=== PATIENT | female | born 1975 | race Caucasian/White ===

== ENCOUNTER 2020-01-02 13:13 | Inpatient (IN) | payer BC ==
[~2020-01-02] VITALS: Ht 157.5 cm; Wt 81.8 kg
[2020-01-02 15:07] LABS: BASOPHILS # (AUTO) 0.1 X10'3 (0-0.2); BASOPHILS % (AUTO) 0.6 % (0-1); EOSINOPHILS # (AUTO) 0.3 X10'3 (0-0.9); EOSINOPHILS % (AUTO) 3.1 % (0-6); HEMOGLOBIN 12.4 g/dl (12.0-16.0); LYMPHOCYTES # (AUTO) 1.7 X10'3 (1.1-4.8); LYMPHOCYTES % (AUTO) 20.2 % (21-51); MEAN CORPUSCULAR HEMOGLOBIN 27.5 PG (27.0-31.0); MEAN CORPUSCULAR HGB CONC 32.5 g/dL (33.0-36.5); MEAN CORPUSCULAR VOLUME 84.6 FL (78-98); MEAN PLATELET VOLUME 8.2 FL (7.4-10.4); MONOCYTES # (AUTO) 0.7 X10'3 (0-0.9); MONOCYTES % (AUTO) 8.6 % (2-12); NEUTROPHILS # (AUTO) 5.5 X10'3 (1.8-7.7); NEUTROPHILS % (AUTO) 67.5 % (42-75); PLATELET COUNT 434 X10'3 (140-440); RED CELL DISTRIBUTION WIDTH 15.5 % (11.5-14.5); WHITE BLOOD COUNT 8.2 X10'3 (4.5-11.0)
[2020-01-02 15:10] LABS: URINE HCG NEGATIVE (NEG)
[2020-01-02 15:12] LABS: CLARITY,URINE SLIGHTLY CLOUDY (Clear); COLOR,URINE AMBER (Yellow)
[2020-01-02 15:28] LABS: UA COLLECTION TYPE CLN CATCH MIDSTREAM
[2020-01-02 15:31] LABS: MUCUS STRANDS MODERATE /LPF (Neg)
[2020-01-02 15:32] LABS: BACTERIA,URINE FEW /HPF (Neg); SQUAMOUS EPITHELIAL CELL,UR MODERATE /LPF (FEW)
[2020-01-02 15:33] LABS: RBC,URINE 0-2 /HPF (0-2); WBC,URINE 0-4 /HPF (0-4)
[2020-01-02 15:34] LABS: TRANSITIONAL EPI CELLS,URINE FEW /HPF
[2020-01-02 15:38] LABS: CAL OXALATE CRYSTALS 1+ /HPF (NEGATIVE)
[2020-01-02 15:40] LABS: ALANINE AMINOTRANSFERASE 706 U/L (12-78); ALBUMIN 3.7 G/DL (3.4-5.0); ALKALINE PHOSPHATASE 502 IU/L (46-116); AMYLASE 36 U/L (25-115); ANION GAP 11 (8-16); ASPARTATE AMINO TRANSFERASE 339 U/L (10-37); BILIRUBIN,TOTAL 4.6 MG/DL (0.1-1.0); BLOOD UREA NITROGEN 9 MG/DL (7-18); BUN/CREATININE RATIO 12.7 (6.6-38.0); CALCIUM 9.3 MG/DL (8.5-10.1); CHLORIDE 101 MMOL/L (99-107); CREATININE 0.71 MG/DL (0.40-0.90); GLUCOSE 92 MG/DL (70-104); LIPASE 136 U/L (73-393); SODIUM 138 MMOL/L (135-145); TOTAL CARBON DIOXIDE 26.2 MMOL/L (24-32); eGFR 90 ML/MIN
[2020-01-02 15:41] LABS: ALBUMIN/GLOBULIN RATIO 0.9 (1.1-1.5); POTASSIUM 3.8 MMOL/L (3.5-5.1)
[2020-01-02] MEDS ORDERED: piperacillin/tazo 4.5gm/100ml 100 ML IV ONE (16:50)
[2020-01-02] MEDS ORDERED: OMEP40CA13 PO (17:08)
[2020-01-02] MEDS ORDERED: normal saline 1000ML IV soln IVB ONE (17:15)
[2020-01-02] MEDS ORDERED: HYDROcodone/acetaminophen 10/325mg tab PO PRN (17:25)
[2020-01-02] MEDS ORDERED: diphenhydrAMINE 25mg capsule PO PRN (17:25)
[2020-01-02] MEDS ORDERED: HYDROmorphone inj. 0.5 MG/0.5 ML DISP.SYRIN IV PRN (17:25)
[2020-01-02] MEDS ORDERED: mag hydrox/Alum hydrox/simeth 30ml oral suspension PO PRN (17:25)
[2020-01-02] MEDS ORDERED: acetaminophen 325mg tablet PO PRN ×2 (17:25)
[2020-01-02] MEDS ORDERED: magnesium hydroxide 30ml (MOM) UD suspension PO PRN (17:25)
[2020-01-02] MEDS ORDERED: ondansetron/PF 4mg/2ml inj IV PRN (17:25)
[2020-01-02 19:25] VITALS: BP 127/78
[2020-01-02] MEDS: normal saline 1000ml 1,000 ML IV SCH (19:49)
[2020-01-03] VITALS (20 sets, daily range): BP systolic 111–154; BP diastolic 68–98
[2020-01-03] MEDS: piperacillin/tazo 4.5gm/100ml 100 ML IV SCH ×4 (00:09→23:53)
[2020-01-03 04:54] LABS: BASOPHILS # (AUTO) 0.1 X10'3 (0-0.2); BASOPHILS % (AUTO) 2.1 % (0-1); EOSINOPHILS # (AUTO) 0.3 X10'3 (0-0.9); HEMATOCRIT 33.4 % (35.0-45.0); HEMOGLOBIN 10.9 g/dl (12.0-16.0); MEAN CORPUSCULAR HEMOGLOBIN 27.8 PG (27.0-31.0); MEAN PLATELET VOLUME 8.1 FL (7.4-10.4); NEUTROPHILS # (AUTO) 3.2 X10'3 (1.8-7.7)
[2020-01-03 04:56] LABS: EOSINOPHILS % (AUTO) 5.2 % (0-6); LYMPHOCYTES # (AUTO) 1.7 X10'3 (1.1-4.8); LYMPHOCYTES % (AUTO) 28.5 % (21-51); MEAN CORPUSCULAR HGB CONC 32.6 g/dL (33.0-36.5); MEAN CORPUSCULAR VOLUME 85.3 FL (78-98); MONOCYTES # (AUTO) 0.6 X10'3 (0-0.9); MONOCYTES % (AUTO) 10.5 % (2-12); NEUTROPHILS % (AUTO) 53.7 % (42-75); PLATELET COUNT 361 X10'3 (140-440); RED BLOOD COUNT 3.92 X10'6 (4.20-5.60); RED CELL DISTRIBUTION WIDTH 15.6 % (11.5-14.5)
[2020-01-03] MEDS: normal saline 1000ml 1,000 ML IV SCH ×3 (05:22→20:54)
[2020-01-03 05:24] LABS: ALANINE AMINOTRANSFERASE 561 U/L (12-78); ALKALINE PHOSPHATASE 419 IU/L (46-116); ANION GAP 10 (8-16); ASPARTATE AMINO TRANSFERASE 255 U/L (10-37); BILIRUBIN,TOTAL 4.4 MG/DL (0.1-1.0); BLOOD UREA NITROGEN 7 MG/DL (7-18); BUN/CREATININE RATIO 9.1 (6.6-38.0); CALCIUM 8.4 MG/DL (8.5-10.1); CHLORIDE 106 MMOL/L (99-107); CREATININE 0.77 MG/DL (0.40-0.90); GLUCOSE 84 MG/DL (70-104); POTASSIUM 3.6 MMOL/L (3.5-5.1); SODIUM 140 MMOL/L (135-145); TOTAL CARBON DIOXIDE 24.3 MMOL/L (24-32); eGFR 82 ML/MIN
[2020-01-03 05:25] LABS: ALBUMIN/GLOBULIN RATIO 0.9 (1.1-1.5); TOTAL PROTEIN 6.5 G/DL (6.4-8.2)
[2020-01-03 05:42] LABS: PLATELET ESTIMATE NORMAL; TOTAL CELLS COUNTED 100
--- NOTE | 2020-01-03 06:28 | NUR ---
Problems reprioritized. Patient report given, questions answered & plan of care reviewed with Zofia JUSTIN. Addendum: 01/03/20 at 0628 by Faith Gallo RN Amended: Links added.
--- NOTE | 2020-01-03 06:30 | NUR ---
Patient in room [facility]. I have received report from NHAN Cuevas and had the opportunity to ask questions and assume patient care.
--- NOTE | 2020-01-03 06:38 | NUR ---
Student documentation: I have reviewed and agree with all interventions, assessments performed and documented by Leanna Student nurse. Addendum: 01/03/20 at 0639 by Faith Gallo RN Amended: Links added.
[2020-01-03] MEDS ORDERED: fentaNYL/PF 50MCG/1 ML 2ML syringe ONE (13:01)
[2020-01-03] MEDS ORDERED: MIDAZolam 5mg/5ml vial ONE (13:01)
[2020-01-03] MEDS ORDERED: diphenhydrAMINE 50 mg/ml inj ONE (13:01)
[2020-01-03] MEDS ORDERED: iohexol 300 MG/1 ML 50ml polymer ONE (13:02)
[2020-01-03] MEDS ORDERED: LIDOcaine Viscous 15ml cup ONE (13:02)
[2020-01-03] MEDS ORDERED: glucagon, human recombinant 1mg kit ONE (13:02)
--- NOTE | 2020-01-03 13:40 | NUR ---
Patient in room [facility]. I have received report from NHAN Armijo and had the opportunity to ask questions and assume patient care.
--- NOTE | 2020-01-03 13:45 | NUR ---
patient picked up for ERCP
--- NOTE | 2020-01-03 14:00 | NUR ---
Problems reprioritized. Patient report given, questions answered & plan of care reviewed with NHAN Willis.
--- NOTE | 2020-01-03 16:10 | NUR ---
patient arrived to floor. VSS. c/o 07/03 pain.
[2020-01-03] MEDS: HYDROcodone/acetaminophen 5mg/325mg tablet PO PRN ×2 (16:20→20:56)
--- NOTE | 2020-01-03 18:32 | NUR ---
Student Medication Administration: For this medication-pass time frame, all medication were reviewed, dispensed, administered and documented per hospital policy by SN Mariah.
--- NOTE | 2020-01-03 18:33 | NUR ---
Problems reprioritized. Patient report given, questions answered & plan of care reviewed with NHAN LAU.
[2020-01-04] VITALS (20 sets, daily range): BP systolic 98–130; BP diastolic 52–77
--- NOTE | 2020-01-04 00:25 | NUR ---
Student documentation: I have reviewed and agree with all interventions, assessments performed and documented by Brigette Student nurse. Addendum: 01/04/20 at 0026 by Faith Gallo RN Amended: Links added.
[2020-01-04 05:19] LABS: BASOPHILS # (AUTO) 0.1 X10'3 (0-0.2); EOSINOPHILS # (AUTO) 0.3 X10'3 (0-0.9); HEMOGLOBIN 10.3 g/dl (12.0-16.0); MONOCYTES # (AUTO) 0.6 X10'3 (0-0.9); WHITE BLOOD COUNT 5.1 X10'3 (4.5-11.0)
[2020-01-04 05:24] LABS: BASOPHILS % (AUTO) 2.6 % (0-1); EOSINOPHILS % (AUTO) 5.4 % (0-6); HEMATOCRIT 30.9 % (35.0-45.0); LYMPHOCYTES # (AUTO) 1.6 X10'3 (1.1-4.8); LYMPHOCYTES % (AUTO) 32.1 % (21-51); MEAN CORPUSCULAR HEMOGLOBIN 28.6 PG (27.0-31.0); MEAN CORPUSCULAR HGB CONC 33.3 g/dL (33.0-36.5); MEAN CORPUSCULAR VOLUME 85.7 FL (78-98); MEAN PLATELET VOLUME 8.1 FL (7.4-10.4); MONOCYTES % (AUTO) 11.4 % (2-12); NEUTROPHILS # (AUTO) 2.5 X10'3 (1.8-7.7); NEUTROPHILS % (AUTO) 48.5 % (42-75); PLATELET COUNT 333 X10'3 (140-440); RED CELL DISTRIBUTION WIDTH 15.4 % (11.5-14.5)
[2020-01-04 05:36] LABS: ALANINE AMINOTRANSFERASE 483 U/L (12-78); ALBUMIN 2.9 G/DL (3.4-5.0); ALBUMIN/GLOBULIN RATIO 0.9 (1.1-1.5); ALKALINE PHOSPHATASE 399 IU/L (46-116); ANION GAP 9 (8-16); ASPARTATE AMINO TRANSFERASE 183 U/L (10-37); BILIRUBIN,TOTAL 2.6 MG/DL (0.1-1.0); BLOOD UREA NITROGEN 7 MG/DL (7-18); BUN/CREATININE RATIO 8.6 (6.6-38.0); CALCIUM 8.4 MG/DL (8.5-10.1); CHLORIDE 105 MMOL/L (99-107); CREATININE 0.81 MG/DL (0.40-0.90); GLUCOSE 89 MG/DL (70-104); POTASSIUM 3.8 MMOL/L (3.5-5.1); SODIUM 140 MMOL/L (135-145); TOTAL CARBON DIOXIDE 26.5 MMOL/L (24-32); TOTAL PROTEIN 6.3 G/DL (6.4-8.2); eGFR 78 ML/MIN
[2020-01-04] MEDS: normal saline 1000ml 1,000 ML IV SCH ×2 (05:46→12:44)
[2020-01-04] MEDS ORDERED: INDOCYANINE GREEN 25 MG/10 ML VIAL IV ONE (06:00)
--- NOTE | 2020-01-04 06:00 | NUR ---
Patient in room [facility]. I have received report from NHNA Cuevas and had the opportunity to ask questions and assume patient care.
--- NOTE | 2020-01-04 06:11 | NUR ---
Problems reprioritized. Patient report given, questions answered & plan of care reviewed with Savannah JUSTIN, and reported to him that 06 IC green IVP was given for surgery. Addendum: 01/04/20 at 0613 by Faith Gallo RN Amended: Links added.
[2020-01-04] MEDS ORDERED: LIDOcaine 1% 30ml preserv. free vial ONE (06:47)
[2020-01-04] MEDS ORDERED: BUPIVAcaine/PF 2.5 mg/ml (0.25%) 30ml vial ONE (06:47)
[2020-01-04] MEDS: piperacillin/tazo 4.5gm/100ml 100 ML IV SCH ×2 (07:06→15:27)
[2020-01-04] MEDS ORDERED: HYDROmorphone inj. 0.5 MG/0.5 ML DISP.SYRIN IV PRN ×2 (08:25)
[2020-01-04] MEDS ORDERED: ondansetron/PF 4mg/2ml inj IV PRN ×2 (08:25→10:25)
[2020-01-04] MEDS ORDERED: ringers solution, lacted 1,000 ML IV SCH (08:25)
[2020-01-04] MEDS ORDERED: meperidine/PF 25mg/ml syringe IV PRN ×2 (08:25)
--- NOTE | 2020-01-04 08:25 | NUR ---
Attempted to contact OR or Recovery x3.
[2020-01-04] MEDS ORDERED: fentaNYL/PF 50MCG/1 ML 2ML syringe ONE ×2 (08:31→09:23)
[2020-01-04] MEDS ORDERED: rocuronium 10mg/ml inj IV ONE (08:31)
[2020-01-04] MEDS ORDERED: midazolam 2 mg/2 ml injection ONE (08:31)
[2020-01-04] MEDS ORDERED: propofol inj 20 ML IV ONE (08:32)
[2020-01-04] MEDS ORDERED: dexamethasone sod phosphate 4mg/ml inj. ONE (09:58)
[2020-01-04] MEDS ORDERED: ondansetron/PF 4mg/2ml inj ONE (09:58)
[2020-01-04] MEDS ORDERED: glycopyrrolate 0.2mg/ml inj ONE (10:07)
[2020-01-04] MEDS ORDERED: neostigmine methylsulfate 1 MG/ML 10ml vial ONE (10:07)
[2020-01-04] MEDS ORDERED: HYDROcodone/acetaminophen 10/325mg tab PO PRN (10:25)
[2020-01-04] MEDS ORDERED: HYDROcodone/acetaminophen 5mg/325mg tablet PO PRN (10:25)
--- NOTE | 2020-01-04 10:30 | NUR ---
Received from OR via BED, accompanied by Anesthesiologist DR ALLRED and report given by Anesthesiolgist. PATIENT A&OX4, PAINFUL WILL MEDICATE PER ORDERS, V/S WNL, NEUROVASCULAR CHECKS INTACT, 20G PIV UE, SCD ON,
[2020-01-04] MEDS ORDERED: ketorolac trometh. 30mg/ml inj. IM ONE (11:10)
[2020-01-04] MEDS ORDERED: acetaminophen 1,000mg/100ml IV 100 ML IV ONE (11:15)
--- NOTE | 2020-01-04 11:30 | NUR ---
PATIENT TAKEN TO WITH ALL BELONGINGS AND HOOKED UP TO MONITORS IN ROOM AND REPORT GIVEN TO RN WHO HAS TAKEN OVER PATIENT CARE. PAIN GETTING BETTER POST IV TYL AND TORADOL
[2020-01-04] MEDS: HYDROmorphone/PF 0.2 MG/ML SYRINGE IV PRN ×2 (12:44→16:45)
[2020-01-04] MEDS: acetaminophen 1,000mg/100ml IV 100 ML IV SCH ×2 (13:24→21:05)
--- NOTE | 2020-01-04 18:16 | NUR ---
patient triplicate provided to . MD was contacted regarding a discharge routine, responded will input and now awaiting orders.
--- NOTE | 2020-01-04 18:42 | NUR ---
Problems reprioritized. Patient report given, questions answered & plan of care reviewed with NHAN Gomez.
[2020-01-04] MEDS ORDERED: lactobacillus rhamnosus 10,000 MMU CELLS/CAPSULE PO SCH (20:00)
[2020-01-04] MEDS ORDERED: HYDR-4353 PO (21:05)
== END 2020-01-04 22:00 | disposition home or self-care (01) | DRG 419 ==
LOC: ER 13:15 → ED HOLD 17:21 → EDBEDREQ 18:36 → SUR 3N 19:26
PROVIDERS: ADMIT Internal Medicine; ATTEND Internal Medicine
PROC: 0FJB8ZZ Inspection of Hepatobiliary Duct, Via Natural or Artificial Opening Endoscopic (ICD-10-PCS; 2020-01-03)
PROC: 8E0W4CZ Robotic Assisted Procedure of Trunk Region, Percutaneous Endoscopic Approach (ICD-10-PCS; 2020-01-04)
PROC: BF121ZZ Fluoroscopy of Gallbladder using Low Osmolar Contrast (ICD-10-PCS; 2020-01-04)
PROC: 0FT44ZZ Resection of Gallbladder, Percutaneous Endoscopic Approach (ICD-10-PCS; principal; 2020-01-04 08:32)
DX: K80.43 Calculus of bile duct with acute cholecystitis with obstruction (principal); K21.9 Gastro-esophageal reflux disease without esophagitis; Z79.899 Other long term (current) drug therapy
CPT/HCPCS: 43262; 43264; 96365; 99285; Z7506; Z7508; 36415; 76700; 80053; 81001; 81025; 82150; 82948; 83690; 85007; 85025; 87081; 99152; 99153; A4215; A4618; A4620; A7000; C1769; G0378; J0131; J1100; J1170; J1200; J1610; J1885; J2001; J2175; J2250; J2405; J2543; J2704; J2710; J3010; J3490; J7030; J7040; J7120; Q9967